=== PATIENT | female | born 1985 | race American Indian/Alaskan Native ===

== ENCOUNTER 2017-02-27 13:53 | Emergency (ER) | payer SELFPAY ==
[2017-02-27 13:53] VITALS: BMI 30.7
[2017-02-27 14:14] VITALS: BP 139/81; PULSE 83; RESP 14; TEMP 98.4; O2SAT 100
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
== END 2017-02-27 15:40 | disposition home or self-care (01) ==
LOC: C.ER 13:53
DX: M54.2 Cervicalgia (principal); M25.511 Pain in right shoulder; V43.62XA Car passenger injured in collision with other type car in traffic accident, initial encounter; Y92.410 Unspecified street and highway as the place of occurrence of the external cause